=== PATIENT | female | born 1955 ===

== ENCOUNTER 2018-11-24 19:36 | Emergency (ER) | payer MEDICAID, OTHER ==
[2018-11-24 19:36] VITALS: BMI 28.3
[2018-11-24 19:48] VITALS: RESP 18; O2SAT 98
[2018-11-24] MEDS ORDERED: Sodium Chloride 0.9% 1,000 ML IV STA ×2 (20:15→23:27)
--- NOTE | 2018-11-24 21:08 | ED PDOC ---
HPI: Hypertension/Hypotension Time Seen by Provider: 11/24/18 20:02 Chief Complaint (Nursing): Palpitations Chief Complaint (Provider): Palpitations History Per: Patient History/Exam Limitations: no limitations Onset/Duration Of Symptoms: Intermittent Episodes (episode started earlier today) Current Symptoms Are (Timing): Still Present Additional Complaint(s): 63 year old female presents to the ED for evaluation of intermittent episodes of palpitations over the past month due to some at home stress. Patient reports that today around 17:30 she was sitting at home having a normal day when she started having another episode, still present currently. Otherwise denies chest pain, shortness of breath, and drug use. Of note, patient does report using more caffeine than usual today. PMD: Miguel A Hall V Past Medical History Reviewed: Historical Data, Nursing Documentation, Vital Signs Vital Signs: Last Vital Signs Temp 97.9 F 11/24/18 19:45 Pulse 139 H 11/24/18 21:05 Resp 18 11/24/18 21:05 BP 135/94 H 11/24/18 21:05 Pulse Ox 98 11/24/18 21:05 - Medical History PMH: No Chronic Diseases Denies: Chronic Kidney Disease - Surgical History Surgical History: No Surg Hx - Family History Family History: States: Unknown Family Hx - Social History Current smoker - smoking cessation education provided: No Alcohol: Social Drugs: Denies - Immunization History Hx Tetanus Toxoid Vaccination: Yes Hx Influenza Vaccination: No Hx Pneumococcal Vaccination: No - Home Medications Home Medications: Ambulatory Orders Medication Instructions Recorded Azithromycin [Zithromax] 250 mg PO DAILY #6 tab 07/08/17 Benzonatate [Tessalon Perle] 100 mg PO TID PRN #15 capsule 07/08/17 Guaifenesin [Mucinex ER] 600 mg PO DAILY 07/08/17 Metoprolol Tartrate [Lopressor] 25 mg PO DAILY #30 tab 11/25/18 - Allergies Allergies/Adverse Reactions: Allergies Allergy/AdvReac Type Severity Reaction Status Date / Time No Known Allergies Allergy Verified 07/08/17 09:10 Review of Systems ROS Statement: Except As Marked, All Systems Reviewed And Found Negative Cardiovascular: Positive for: Palpitations. Negative for: Chest Pain Respiratory: Negative for: Shortness of Breath Physical Exam - Reviewed Nursing Documentation Reviewed: Yes Vital Signs Reviewed: Yes - Physical Exam Appears: Positive for: Well, Non-toxic, No Acute Distress Head Exam: Positive for: ATRAUMATIC, NORMAL INSPECTION, NORMOCEPHALIC Skin: Positive for: Normal Color, Warm, DRY Eye Exam: Positive for: EOMI, Normal appearance, PERRL ENT: Positive for: Normal ENT Inspection Neck: Positive for: Normal, Painless ROM, Supple Cardiovascular/Chest: Positive for: Tachycardia Respiratory: Positive for: Normal Breath Sounds. Negative for: Respiratory Distress Gastrointestinal/Abdominal: Positive for: Normal Exam, Soft. Negative for: Tenderness Back: Positive for: Normal Inspection Extremity: Positive for: Normal ROM (all extremities) Neurological/Psych: Positive for: Awake, Alert, Oriented (x3) - Laboratory Results Result Diagrams: 11/24/18 21:07 11/24/18 21:07 - ECG O2 Sat by Pulse Oximetry: 98 (RA) Pulse Ox Interpretation: Normal Medical Decision Making Medical Decision Making: A/P: tachycardia in a 63 year old female who is otherwise very well appearing --possibly related to caffeine intake or anxiety --not concerned for PE at this time --PERC negative Time: 2012 Initial Plan: --EKG --BMP --T3 uptake --TSH --Trop I --EKG --CBC with differential --PT / PTT --CXR --Normal saline IV --Pt placed on soft iron inspector [id number] Patient with persistent SVT. Patient was placed on monitor, IV, O2, adenosine was given with good response. Patient's rhythm converted to normal sinus rhythm was successful. 200 Patient no longer has any complaints, no palpitations. HR 70s, NSR on EKG. Very well appearing. Will prescribe beta vinod and advise patient to followup with Dr. Hall early next week. Return precautions were discussed. Very well appearing upon discharge. Scribe Attestation: Documented by Emperatriz Hollins, acting as a scribe for Octavio Musa MD. Provider Scribe Attestation: All medical record entries made by the Scribe were at my direction and personally dictated by me. I have reviewed the chart and agree that the record accurately reflects my personal performance of the history, physical exam, medical decision making, and the department course for this patient. I have also personally directed, reviewed, and agree with the discharge instructions and disposition. Disposition - Clinical Impression Clinical Impression: Supraventricular tachycardia - Disposition Referrals: Miguel A Hall MD [Staff Provider] - Disposition: Routine/Home Disposition Time: 01:30 Condition: STABLE Prescriptions: Metoprolol Tartrate [Lopressor] 25 mg PO DAILY #30 tab Instructions: Supraventricular Tachycardia (SVT), Metoprolol Forms: [facility] ([place])
[2018-11-24 21:22] LABS: BASO # 0.1 K/uL (0.0-0.2); BASO % 0.6 % (0.0-2.0); EOS # 0.3 K/uL (0.0-0.7); EOS % 3.6 % (0.0-4.0); LYMPH # 3.6 K/uL (1.0-4.3); LYMPH % 40.1 % (20.0-40.0); MEAN CORPUSCULAR HEMOGLOBIN 29.7 pg (27.0-31.0); MEAN CORPUSCULAR HGB CONC 33.3 g/dL (33.0-37.0); MONO # 0.8 K/uL (0.0-0.8); MONO % 8.9 % (0.0-10.0); NEUT # 4.2 K/uL (1.8-7.0); NEUT % 46.8 % (50.0-75.0); NRBC % 0.2 % (0.0-0.0); RBC 4.71 Mil/uL (3.80-5.20); RED CELL DISTRIBUTION WIDTH 13.1 % (11.5-14.5); WHITE BLOOD COUNT 9.1 K/uL (4.8-10.8)
[2018-11-24 21:28] LABS: BLOOD UREA NITROGEN 19 mg/dl (7-17); CALCIUM 9.7 mg/dL (8.4-10.2); GFR NON-AFRICAN AMERICAN > 60
[2018-11-24 21:40] LABS: INR 0.9; PROTHROMBIN TIME 10.6 Seconds (9.8-13.1)
[2018-11-24 21:42] LABS: PARTIAL THROMBOPLASTIN TIME 30.2 Seconds (25.6-37.1)
[2018-11-24 21:45] LABS: T3 UPTAKE 30.5 % (23.0-41.0)
[2018-11-24] MEDS: Metoprolol 1 mg/ml Inj IVP STA ×2 (23:05→23:39)
[2018-11-25 01:38] VITALS: BP 153/87; PULSE 78; TEMP 98.4
--- NOTE | 2018-11-25 07:13 | CARD ---
APPROVED REPORT Date of service: 11/24/2018 EKG Measurement Heart [id number] <Conclusion> Supraventricular tachycardia Low voltage QRS Borderline ECG
--- NOTE | 2018-11-25 08:35 | RAD ---
Date of service: 11/24/2018 HISTORY: palpitations COMPARISON: No prior. TECHNIQUE: Chest PA and lateral views FINDINGS: LUNGS: No active pulmonary disease. PLEURA: No significant pleural effusion identified. No pneumothorax apparent. CARDIOVASCULAR: No aortic atherosclerotic calcification present. Normal cardiac size. No pulmonary vascular congestion. OSSEOUS STRUCTURES: No significant abnormalities. VISUALIZED UPPER ABDOMEN: Normal. OTHER FINDINGS: None. IMPRESSION: No acute cardiopulmonary disease appreciated.
== END 2018-11-25 01:20 | disposition home or self-care (01) ==
LOC: H.ER 19:36
DX: I47.1 Supraventricular tachycardia (principal); I10 Essential (primary) hypertension
CPT/HCPCS: 71046; 80048; 84443; 84479; 84484; 85025; 85610; 85730; 93005; 96361; 96374; 99284; J0153; J7030